=== PATIENT | male | born 1940 | race Caucasian/White ===

== ENCOUNTER 2017-02-14 10:57 | Emergency (ER) | payer OTHER ==
[~2017-02-14] VITALS: Ht 193 cm; Wt 103.4 kg
[2017-02-14 11:05] VITALS: BP_SYST 156
--- NOTE | 2017-02-14 11:08 | NUR ---
Pt placed to ER bed 07, report given to ARRON Montelongo.
[2017-02-14] MEDS ORDERED: ONDANSETRON HCL 4 MG/2 ML VIAL IVP ONE (11:15)
[2017-02-14] MEDS ORDERED: MORPHINE 4 MG/ML INJ. SYRINGE IVP ONE (11:15)
--- NOTE | 2017-02-14 11:30 | NUR ---
# 20 gauge angiocath placed to LEFT FOREARM. Use of aseptic technique. Opsite placed over site. Blood return noted. No evidence of infiltration noted. Patient tolerated well.
--- NOTE | 2017-02-14 11:33 | NUR ---
MEDCIATED WITH ZOFRAN 4 MG IVP FOR NAUSEA.
[2017-02-14 11:36] LABS: ANION GAP 7 (5-15); CALCIUM 8.6 mg/dL (8.4-11.0); CHLORIDE 104 mmol/L (98-107); CREATININE 0.88 mg/dL (0.55-1.30); GLUCOSE 162 mg/dL (70-99); POTASSIUM 3.6 mmol/L (3.5-5.1); SODIUM SERUM 137 mmol/L (136-145); UREA NITROGEN, BLOOD 13 mg/dL (8-21)
[2017-02-14 11:38] LABS: BASOPHILS % (AUTO) 0.2 % (0.0-2.0); EOSINOPHILS % (AUTO) 0.3 % (0.0-4.0); HEMATOCRIT 44.1 % (36-54); HEMOGLOBIN 14.4 g/dL (14.0-18.0); LYMPHOCYTES # (AUTO) 0.5 K/uL (1.0-5.5); MEAN CORPUSCULAR HEMOGLOBIN 29 pg (27-31); MEAN CORPUSCULAR HGB CONC 33 % (32-36); MEAN CORPUSCULAR VOLUME 88 fL (79.0-98.0); MONOCYTES # (AUTO) 0.3 K/uL (0.0-1.0); MONOCYTES % (AUTO) 5.2 % (1.7-9.3); NEUTROPHILS # (AUTO) 5.8 K/uL (1.8-7.7); NEUTROPHILS % (AUTO) 86.3 % (40.0-70.0); PLATELET COUNT (AUTO) 196 K/uL (130-430); PROTHROMBIN TIME 10.4 SECS (9.5-12.5); RED BLOOD CELL COUNT(AUTO) 4.98 MIL/uL (4.2-6.2); RED CELL DISTRIBUTION WIDTH 13.1 % (9.0-15.0); WHITE BLOOD COUNT (AUTO) 6.6 K/uL (4.8-10.8)
--- NOTE | 2017-02-14 11:40 | NUR ---
Dr. Story at bedside to assess pt.
[2017-02-14 11:51] LABS: ALANINE AMINOTRANSFERASE 19 U/L (12-78); ALBUMIN 3.8 g/dL (3.4-4.8); ASPARTATE AMINOTRANSFERASE 20 U/L (10-37); CREATINE KINASE, TOTAL 159 U/L (39-308); TOTAL BILIRUBIN 0.8 mg/dL (0.0-1.0); TOTAL PROTEIN, SERUM 6.9 g/dL (6.4-8.3)
--- NOTE | 2017-02-14 11:53 | NUR ---
RE-ASSESSED PT, SEEN TALKING TO HIS , " I FEEL BETTER NOW".
[2017-02-14 12:30] VITALS: BP_SYST 146
--- NOTE | 2017-02-14 12:30 | NUR ---
Patient given written and verbal discharge instructions and verbalizes understanding. ER MD discussed with patient the results and treatment provided. Patient in stable condition. ID arm band removed. IV catheter removed intact and dressing applied, no active bleeding. Rx of Zofran and Tylenol given. Patient educated on pain management and to follow up with PMD. Pain Scale 0/10. Opportunity for questions provided and answered.
== END 2017-02-14 12:30 | disposition home or self-care (01) ==
LOC: SED 10:57
DX: K52.9 Noninfective gastroenteritis and colitis, unspecified (principal); J44.9 Chronic obstructive pulmonary disease, unspecified; F17.200 Nicotine dependence, unspecified, uncomplicated
CPT/HCPCS: 36415; 80053; 82550; 84484; 85025; 85610; 85730; 93005; 96374; 99285; J2405

== ENCOUNTER 2018-11-15 11:27 | Emergency (ER) | payer OTHER ==
[~2018-11-15] VITALS: Ht 193 cm; Wt 108.9 kg
[2018-11-15 11:27] VITALS: BP_SYST 151
[2018-11-15 12:16] LABS: BASOPHILS % (AUTO) 0.9 % (0.0-2.0); EOSINOPHILS # (AUTO) 0.2 K/uL (0.0-0.4); EOSINOPHILS % (AUTO) 4.7 % (0.0-4.0); HEMATOCRIT 43.6 % (36-54); HEMOGLOBIN 14.5 g/dL (14.0-18.0); LYMPHOCYTES # (AUTO) 0.7 K/uL (1.0-5.5); LYMPHOCYTES % (AUTO) 14.1 % (20.5-51.5); MEAN CORPUSCULAR HEMOGLOBIN 29 pg (27-31); MEAN CORPUSCULAR HGB CONC 33 % (32-36); MEAN CORPUSCULAR VOLUME 88 fL (79.0-98.0); MONOCYTES # (AUTO) 0.5 K/uL (0.0-1.0); MONOCYTES % (AUTO) 10.7 % (1.7-9.3); NEUTROPHILS # (AUTO) 3.4 K/uL (1.8-7.7); NEUTROPHILS % (AUTO) 69.6 % (40.0-70.0); PLATELET COUNT (AUTO) 209 K/uL (130-430); RED BLOOD CELL COUNT(AUTO) 4.95 MIL/uL (4.2-6.2); RED CELL DISTRIBUTION WIDTH 13.9 % (9.0-15.0); WHITE BLOOD COUNT (AUTO) 4.9 K/uL (4.8-10.8)
[2018-11-15 12:28] LABS: ANION GAP 8 (5-15); CALCIUM 8.8 mg/dL (8.4-11.0); CHLORIDE 100 mmol/L (98-107); GLUCOSE 94 mg/dL (70-99); POTASSIUM 3.9 mmol/L (3.5-5.1); SODIUM SERUM 134 mmol/L (136-145); UREA NITROGEN, BLOOD 11 mg/dL (8-21)
[2018-11-15 12:33] LABS: INR 0.9 (0.80-1.20); PROTHROMBIN TIME 9.3 SECS (9.5-12.5)
[2018-11-15 12:58] LABS: ALANINE AMINOTRANSFERASE 22 U/L (12-78); ALBUMIN 3.7 g/dL (3.4-4.8); ASPARTATE AMINOTRANSFERASE 26 U/L (10-37); TOTAL BILIRUBIN 0.9 mg/dL (0.0-1.0)
[2018-11-15 13:01] LABS: CKMB RELATIVE INDEX 0.3 (0.0-2.9)
[2018-11-15] MEDS ORDERED: LEVALBUTEROL HCL 0.63 MG/3 ML VIAL.NEB INH ONE (13:15)
[2018-11-15] MEDS ORDERED: methylPREDNISolone SOD SUCC/PF 62.5 MG/ML VIAL IVP ONE (13:15)
[2018-11-15 13:45] VITALS: BP_SYST 141
== END 2018-11-15 13:45 | disposition home or self-care (01) ==
LOC: SED 11:27
DX: J44.9 Chronic obstructive pulmonary disease, unspecified (principal); R60.0 Localized edema; I10 Essential (primary) hypertension; Z87.891 Personal history of nicotine dependence
CPT/HCPCS: 36415; 71045; 80053; 82550; 82553; 83880; 84484; 85025; 85610; 85730; 93005; 94640; 96374; 99284; J2930; J7614

== ENCOUNTER 2018-11-29 19:48 | Emergency (ER) | payer OTHER ==
[~2018-11-29] VITALS: Ht 193 cm; Wt 108.4 kg
[2018-11-29 19:59] VITALS: BP_SYST 134
[2018-11-29] MEDS ORDERED: NACL 0.9% 1,000 ML IV ONE (20:30)
[2018-11-29] MEDS ORDERED: PIPERACILLIN/TAZO 3.375 GM in NS 50 ML IV ONE (20:30)
[2018-11-29] MEDS ORDERED: PIPERACILLIN/TAZOBACTAM 3.375 GM/VIAL (ZOSYN) IV ONE (20:50)
[2018-11-29 21:01] LABS: BASOPHILS % (AUTO) 0.6 % (0.0-2.0); EOSINOPHILS % (AUTO) 0.2 % (0.0-4.0); HEMATOCRIT 41.8 % (36-54); HEMOGLOBIN 14.5 g/dL (14.0-18.0); LYMPHOCYTES # (AUTO) 0.3 K/uL (1.0-5.5); LYMPHOCYTES % (AUTO) 5.6 % (20.5-51.5); MEAN CORPUSCULAR HEMOGLOBIN 30 pg (27-31); MEAN CORPUSCULAR HGB CONC 35 % (32-36); MEAN CORPUSCULAR VOLUME 86 fL (79.0-98.0); MONOCYTES # (AUTO) 0.5 K/uL (0.0-1.0); MONOCYTES % (AUTO) 8.3 % (1.7-9.3); NEUTROPHILS # (AUTO) 4.8 K/uL (1.8-7.7); NEUTROPHILS % (AUTO) 85.3 % (40.0-70.0); PLATELET COUNT (AUTO) 127 K/uL (130-430); RED BLOOD CELL COUNT(AUTO) 4.85 MIL/uL (4.2-6.2); WHITE BLOOD COUNT (AUTO) 5.6 K/uL (4.8-10.8)
[2018-11-29 21:19] LABS: ANION GAP 14 (5-15); CALCIUM 8.3 mg/dL (8.4-11.0); CHLORIDE 97 mmol/L (98-107); CREATININE 1.13 mg/dL (0.55-1.30); GLUCOSE 120 mg/dL (70-99); POTASSIUM 3.7 mmol/L (3.5-5.1); SODIUM SERUM 132 mmol/L (136-145); UREA NITROGEN, BLOOD 16 mg/dL (8-21)
[2018-11-29 21:22] LABS: INR 0.9 (0.80-1.20); PROTHROMBIN TIME 9.6 SECS (9.5-12.5)
[2018-11-29 21:24] LABS: ALANINE AMINOTRANSFERASE 21 U/L (12-78); ALBUMIN 3.2 g/dL (3.4-4.8); ASPARTATE AMINOTRANSFERASE 26 U/L (10-37); TOTAL BILIRUBIN 0.8 mg/dL (0.0-1.0)
[2018-11-29] MEDS ORDERED: IOHEXOL 350 mgI/mL, 150 ML INFUS..BTL IV ONE (22:32)
[2018-11-30 00:06] VITALS: BP_SYST 136
== END 2018-11-30 00:06 | disposition home or self-care (01) ==
LOC: SED 19:48
DX: J44.1 Chronic obstructive pulmonary disease with (acute) exacerbation (principal); J40 Bronchitis, not specified as acute or chronic; I10 Essential (primary) hypertension; Z87.891 Personal history of nicotine dependence
CPT/HCPCS: 36415; 71045; 71275; 80053; 83605; 83880; 84484; 85025; 85379; 85610; 87040; 93005; 96365; 99284; J2543; J7030; Q9967

== ENCOUNTER 2019-02-03 17:03 | Emergency (ER) | payer OTHER ==
[~2019-02-03] VITALS: Ht 190.5 cm; Wt 104.3 kg
[2019-02-03 17:24] VITALS: BP_SYST 157
[2019-02-03 18:35] VITALS: BP_SYST 157
== END 2019-02-03 18:30 | disposition home or self-care (01) ==
LOC: SED 17:03
DX: R60.0 Localized edema (principal); J44.9 Chronic obstructive pulmonary disease, unspecified; I10 Essential (primary) hypertension; Z87.891 Personal history of nicotine dependence
CPT/HCPCS: 93971; 99284

== ENCOUNTER 2022-02-02 10:00 | Outpatient (CLI) | payer OTHER ==
[~2022-02-02] VITALS: Ht 188 cm; Wt 76.2 kg
== END 2022-02-02 11:00 | disposition home or self-care (01) ==
LOC: SLB 10:00 → EDSTATUS 02-03 13:15
PROVIDERS: ATTEND Urology
DX: N40.1 Benign prostatic hyperplasia with lower urinary tract symptoms (principal); Z20.822 Contact with and (suspected) exposure to COVID-19
CPT/HCPCS: 87081; 36415; U0003

== ENCOUNTER 2022-02-17 11:48 | Day surgery (SDC) | payer OTHER ==
[~2022-02-17] VITALS: Ht 190.5 cm; Wt 85.7 kg
[2022-02-17] MEDS ORDERED: cefTRIAXone 1 GM IVPB PREMIX 50 ML IV ONE (13:15)
[2022-02-17] MEDS ORDERED: MIDAZOLAM HCL 5 MG/5 ML VIAL ONE (15:17)
[2022-02-17] MEDS ORDERED: HYDROcodone/ACETAMIN 5-325 MG TAB (NORCO/ VICODIN) PO PRN (15:45)
[2022-02-17] MEDS ORDERED: LR 1,000 ML IV.SOLN IV ONE (15:45)
[2022-02-17] MEDS ORDERED: ONDANSETRON HCL 4 MG/2 ML VIAL IVP PRN ×2 (15:45→16:15)
[2022-02-17] MEDS ORDERED: PROPOFOL 200MG/ 20ML VIAL (DIPRIVAN) IV ONE (15:45)
[2022-02-17] MEDS ORDERED: MORPHINE 4 MG INJ. 4 MG/ML VIAL IVP PRN (15:45)
[2022-02-17] MEDS ORDERED: NS IRRIG SOLN 1000 ML IR ONE (15:45)
[2022-02-17] MEDS ORDERED: NS IRRIG SOLN 5000 ML IR ONE (15:45)
[2022-02-17] MEDS ORDERED: BUPIVACAINE /PF 0.75% 10 ML VIAL INJ ONE (15:45)
[2022-02-17] MEDS ORDERED: METOCLOPRAMIDE HCL 10 MG/2 ML VIAL IVP PRN (16:15)
[2022-02-17] MEDS ORDERED: fentaNYL CITRATE/PF 100 MCG/2 ML AMP IVP PRN ×2 (16:15)
[2022-02-17] MEDS ORDERED: LIP10 PO (17:00)
[2022-02-17] MEDS ORDERED: FINA5TAB3 PO (17:00)
[2022-02-17] MEDS ORDERED: HYDR12.585 PO (17:00)
[2022-02-17] MEDS ORDERED: TAMS-11 PO (17:00)
[2022-02-17] MEDS ORDERED: CLOP75TA32 PO (17:00)
[2022-02-17] MEDS ORDERED: AMLO5TAB4 PO (17:00)
[2022-02-17] MEDS ORDERED: FURO-149 PO (17:00)
[2022-02-17] MEDS ORDERED: LISI10TA29 PO (17:00)
[2022-02-17] MEDS ORDERED: ALBUTEROL SULFATE 0.083% 2.5 MG/3 ML VIAL.NEB INH ONE ×2 (17:45→17:46)
[2022-02-17] MEDS ORDERED: MEPERIDINE HCL/PF 25 MG/ML DISP.SYRIN IVP ONE (18:15)
[2022-02-17] MEDS ORDERED: MEPERIDINE HCL/PF 25 MG/ML DISP.SYRIN ONE (18:17)
[2022-02-17 20:00] VITALS: BP_SYST 145
[2022-02-17 21:30] VITALS: BP_SYST 139
[2022-02-17] MEDS: NACL 0.9% 1,000 ML IV SCH (21:39)
[2022-02-17 21:40] VITALS: BP_SYST 139
[2022-02-18] MEDS: ALBUTEROL SULFATE 0.083% 2.5 MG/3 ML VIAL.NEB INH PRN ×2 (00:20→05:44)
[2022-02-18 00:23] VITALS: BP_SYST 139
[2022-02-18 00:25] VITALS: BP_SYST 147
[2022-02-18] MEDS: NACL 0.9% 1,000 ML IV SCH ×2 (04:45→08:15)
[2022-02-18 05:00] VITALS: BP_SYST 150
[2022-02-18 08:13] LABS: BASOPHILS % (AUTO) 0.9 % (0.0-2.0); EOSINOPHILS # (AUTO) 0.3 K/uL (0.0-0.4); EOSINOPHILS % (AUTO) 5.2 % (0.0-4.0); HEMATOCRIT 32.5 % (36-54); HEMOGLOBIN 10.8 g/dL (14.0-18.0); LYMPHOCYTES # (AUTO) 0.9 K/uL (1.0-5.5); LYMPHOCYTES % (AUTO) 17.1 % (20.5-51.5); MEAN CORPUSCULAR HEMOGLOBIN 28 pg (27-31); MEAN CORPUSCULAR HGB CONC 33 % (32-36); MEAN CORPUSCULAR VOLUME 83 fL (79.0-98.0); MONOCYTES # (AUTO) 0.4 K/uL (0.0-1.0); MONOCYTES % (AUTO) 7.3 % (1.7-9.3); NEUTROPHILS # (AUTO) 3.5 K/uL (1.8-7.7); NEUTROPHILS % (AUTO) 69.5 % (40.0-70.0); PLATELET COUNT (AUTO) 144 K/uL (130-430); RED BLOOD CELL COUNT(AUTO) 3.93 MIL/uL (4.2-6.2); RED CELL DISTRIBUTION WIDTH 15.8 % (9.0-15.0)
[2022-02-18 08:27] LABS: ANION GAP 7 (5-15); CALCIUM 7.6 mg/dL (8.4-11.0); CHLORIDE 110 mmol/L (98-107); GLUCOSE 79 mg/dL (70-99); POTASSIUM 3.7 mmol/L (3.5-5.1); UREA NITROGEN, BLOOD 9 mg/dL (8-21)
[2022-02-18 08:59] VITALS: BP_SYST 138
--- NOTE | 2022-02-18 10:30 | NUR ---
rn notes patient discharged at this time. with peralta. all belongings with him. all instructions given to patient with no other questions. instructions given to , patient and daughter Verónica.
== END 2022-02-18 10:30 | disposition home or self-care (01) ==
LOC: SDS 11:48 → SMU 17:11 → STU 18:00 → SDS 02-18 10:30
PROVIDERS: ATTEND Urology
DX: N40.1 Benign prostatic hyperplasia with lower urinary tract symptoms (principal); R33.9 Retention of urine, unspecified; I10 Essential (primary) hypertension; J44.9 Chronic obstructive pulmonary disease, unspecified; Z79.899 Other long term (current) drug therapy
CPT/HCPCS: 52601; 80048; 83735; 84100; 85025; 36415; 94640 ×2; 88305; 87426; J3490; J0696; J2250; J2704; J2175; J7613 ×2; J7120; C1769; J2270

== ENCOUNTER 2022-02-20 10:36 | Emergency (ER) | payer OTHER ==
[~2022-02-20] VITALS: Ht 193 cm; Wt 81.6 kg
[~2022-02-20 10:36] MED LIST: AMLO5TAB4 PO; FURO-149 PO; HYDR12.585 PO; LIP10 PO; LISI10TA29 PO
[2022-02-20 11:04] VITALS: BP_SYST 148
[2022-02-20 13:46] LABS: ANION GAP 6 (5-15); CALCIUM 8.2 mg/dL (8.4-11.0); CHLORIDE 107 mmol/L (98-107); CREATININE 0.86 mg/dL (0.55-1.30); GLUCOSE 115 mg/dL (70-99); POTASSIUM 3.7 mmol/L (3.5-5.1); SODIUM SERUM 143 mmol/L (136-145); UREA NITROGEN, BLOOD 11 mg/dL (8-21)
[2022-02-20 13:50] LABS: BASOPHILS # (AUTO) 0.1 K/uL (0.0-0.2); BASOPHILS % (AUTO) 0.9 % (0.0-2.0); EOSINOPHILS # (AUTO) 0.3 K/uL (0.0-0.4); EOSINOPHILS % (AUTO) 4.7 % (0.0-4.0); HEMOGLOBIN 12.7 g/dL (14.0-18.0); LYMPHOCYTES % (AUTO) 17.1 % (20.5-51.5); MEAN CORPUSCULAR HEMOGLOBIN 28 pg (27-31); MEAN CORPUSCULAR HGB CONC 33 % (32-36); MEAN CORPUSCULAR VOLUME 83 fL (79.0-98.0); MONOCYTES # (AUTO) 0.4 K/uL (0.0-1.0); MONOCYTES % (AUTO) 7.2 % (1.7-9.3); NEUTROPHILS # (AUTO) 4.3 K/uL (1.8-7.7); NEUTROPHILS % (AUTO) 70.1 % (40.0-70.0); PLATELET COUNT (AUTO) 163 K/uL (130-430); RED BLOOD CELL COUNT(AUTO) 4.58 MIL/uL (4.2-6.2); RED CELL DISTRIBUTION WIDTH 15.8 % (9.0-15.0); WHITE BLOOD COUNT (AUTO) 6.1 K/uL (4.8-10.8)
[2022-02-20 13:55] LABS: ALANINE AMINOTRANSFERASE 4 U/L (12-78); ALBUMIN 3.1 g/dL (3.4-4.8); ASPARTATE AMINOTRANSFERASE 16 U/L (10-37); TOTAL BILIRUBIN 0.7 mg/dL (0.0-1.0)
[2022-02-20 14:14] VITALS: BP_SYST 168
== END 2022-02-20 15:05 | disposition home or self-care (01) ==
LOC: SED 10:36
DX: I87.2 Venous insufficiency (chronic) (peripheral) (principal); R22.43 Localized swelling, mass and lump, lower limb, bilateral; L29.9 Pruritus, unspecified; J44.9 Chronic obstructive pulmonary disease, unspecified; I10 Essential (primary) hypertension; Z79.899 Other long term (current) drug therapy
CPT/HCPCS: 36415; 71045; 80053; 83880; 84484; 85025; 93005; 99285

== ENCOUNTER 2022-03-03 19:14 | Emergency (ER) | payer OTHER ==
[~2022-03-03] VITALS: Ht 188 cm; Wt 77.1 kg
[2022-03-03 19:29] VITALS: BP_SYST 139
--- NOTE | 2022-03-03 19:35 | NUR ---
HERE FOR RT LEG SWELLING AND UNHEALING WOUND POST SURGERY 8 MOS AGO. PT STATED THAT HIS LT FOOT SARTING TO SWELL WELL. PT DENIES TRAUMA. PT STATED THAT HE ALSO UNDERWENT SURGICAL PROCEDURE A MONTH AGO ON HIS LT LEG, PER PT HE DOESNT REMEMBER WHAT PROCEDURE HE UNDERWENT TO. NOTED REDNESS AND DRAINAGE TO RT FOOT, PT DENIES ANY TRAUMA, DENIES FEVER. PMH;HTN, POST SURGERY TO RT FOOT PRSENTED AAOX4, NOT IN ANY DISTRESS AT THIS TIME, AFEBRILE IN TRIAGE.
--- NOTE | 2022-03-03 19:55 | NUR ---
Dr. Abad at bedside with patient.
--- NOTE | 2022-03-03 20:02 | NUR ---
Patient wheeled to bed 2 for evaluation and treatment. Report given to Annmarie RN by car mover
[2022-03-03] MEDS ORDERED: SULFAMETHOXAZOLE/TRIMETHOPR DS 1 TABLET PO ONE (20:45)
[2022-03-03] MEDS ORDERED: SULF1TAB47 PO (20:54)
--- NOTE | 2022-03-03 21:45 | NUR ---
PT REFUSED VITALS.
[2022-03-03 21:57] VITALS: BP_SYST 139
--- NOTE | 2022-03-03 21:57 | NUR ---
Patient given written and verbal discharge instructions and verbalizes understanding. ER Dr. Abad discussed with patient the results and treatment provided. Patient in stable condition. ID arm band removed. Patient educated on pain management and to follow up with PMD. Pain Scale 0. Opportunity for questions provided and answered. Medication side effect fact sheet provided.
== END 2022-03-03 21:57 | disposition home or self-care (01) ==
LOC: SED 19:14
DX: L03.115 Cellulitis of right lower limb (principal); R22.41 Localized swelling, mass and lump, right lower limb; R21 Rash and other nonspecific skin eruption; I10 Essential (primary) hypertension; J44.9 Chronic obstructive pulmonary disease, unspecified; Z79.899 Other long term (current) drug therapy
CPT/HCPCS: 93971; 99284

== ENCOUNTER 2022-03-17 10:27 | Emergency (ER) | payer OTHER ==
[~2022-03-17] VITALS: Ht 190.5 cm; Wt 83.9 kg
[~2022-03-17 10:27] MED LIST changes: +SULF1TAB47 PO
--- NOTE | 2022-03-17 10:35 | NUR ---
Patient to ER bed 2 to gown for evaluation. Side rails up. Report given to SHYANN HELLER.
[2022-03-17 10:38] VITALS: BP_SYST 135
--- NOTE | 2022-03-17 10:40 | NUR ---
Assumed care of pt who was brought by from home after c/o SOB. Pt has a hx of COPD and chronic bronchitis. Normal O2 sat low 90s. Pt denies N/F/V/D. Pt is A&Ox4, calm and cooperative. Provided with O2 @2L NC bedside. Will continue to monitor and provide care as ordered.
--- NOTE | 2022-03-17 10:58 | NUR ---
ER Dr. Collazo at bedside examining patient.
[2022-03-17] MEDS ORDERED: methylPREDNISolone SOD SUCC/PF 62.5 MG/ML VIAL IVP ONE (11:15)
[2022-03-17] MEDS ORDERED: IPRATROPIUM/ALBUTEROL SULFATE 3 ML AMPUL.NEB (DUONEB) INH ONE (11:15)
[2022-03-17 11:19] LABS: BASOPHILS # (AUTO) 0.1 K/uL (0.0-0.2); BASOPHILS % (AUTO) 1.3 % (0.0-2.0); EOSINOPHILS # (AUTO) 0.5 K/uL (0.0-0.4); EOSINOPHILS % (AUTO) 7.2 % (0.0-4.0); HEMATOCRIT 38.7 % (36-54); LYMPHOCYTES # (AUTO) 1.1 K/uL (1.0-5.5); LYMPHOCYTES % (AUTO) 17.8 % (20.5-51.5); MEAN CORPUSCULAR HEMOGLOBIN 28 pg (27-31); MEAN CORPUSCULAR HGB CONC 34 % (32-36); MEAN CORPUSCULAR VOLUME 82 fL (79.0-98.0); MONOCYTES # (AUTO) 0.5 K/uL (0.0-1.0); MONOCYTES % (AUTO) 8.4 % (1.7-9.3); NEUTROPHILS # (AUTO) 4.2 K/uL (1.8-7.7); NEUTROPHILS % (AUTO) 65.3 % (40.0-70.0); PLATELET COUNT (AUTO) 200 K/uL (130-430); RED BLOOD CELL COUNT(AUTO) 4.71 MIL/uL (4.2-6.2); RED CELL DISTRIBUTION WIDTH 16.2 % (9.0-15.0); WHITE BLOOD COUNT (AUTO) 6.4 K/uL (4.8-10.8)
[2022-03-17 11:30] LABS: ANION GAP 5 (5-15); CALCIUM 8.8 mg/dL (8.4-11.0); CHLORIDE 103 mmol/L (98-107); CREATININE 1.04 mg/dL (0.55-1.30); GLUCOSE 91 mg/dL (70-99); POTASSIUM 3.6 mmol/L (3.5-5.1); SODIUM SERUM 138 mmol/L (136-145); UREA NITROGEN, BLOOD 14 mg/dL (8-21)
[2022-03-17 11:38] LABS: ALANINE AMINOTRANSFERASE 14 U/L (12-78); ALBUMIN 3.5 g/dL (3.4-4.8); ASPARTATE AMINOTRANSFERASE 23 U/L (10-37); TOTAL BILIRUBIN 0.7 mg/dL (0.0-1.0)
[2022-03-17] MEDS ORDERED: methylPREDNISolone SOD SUCC/PF 62.5 MG/ML VIAL ONE (12:00)
[2022-03-17] MEDS ORDERED: PRED50TA PO (12:25)
[2022-03-17 12:54] VITALS: BP_SYST 135
--- NOTE | 2022-03-17 12:58 | NUR ---
Patient given written and verbal discharge instructions and verbalizes understanding. ER Dr. Zay EDWARDS discussed with patient the results and treatment provided. Patient in stable condition. ID arm band removed. IV catheter removed intact and dressing applied, no active bleeding. Rx of Prednisone given. Patient educated on pain management and to follow up with PMD. Pain Scale 0/10. Opportunity for questions provided and answered. Medication side effect fact sheet provided.
== END 2022-03-17 12:54 | disposition home or self-care (01) ==
LOC: SED 10:27
DX: J44.1 Chronic obstructive pulmonary disease with (acute) exacerbation (principal); R06.02 Shortness of breath; I10 Essential (primary) hypertension; Z79.899 Other long term (current) drug therapy; Z20.822 Contact with and (suspected) exposure to COVID-19
CPT/HCPCS: 99285; 96374; 71045; 87426; 80053; 83880; 85025; 84484; 36415; 94640; 36600; 82803; J2930

== ENCOUNTER 2022-06-28 12:52 | Emergency (ER) | payer OTHER ==
[~2022-06-28] VITALS: Ht 182.9 cm; Wt 77.1 kg
[~2022-06-28 12:52] MED LIST changes: +PRED50TA PO
[2022-06-28 13:00] VITALS: BP_SYST 148
--- NOTE | 2022-06-28 13:55 | NUR ---
PT BIB AWAKE AND ALERT AOX4. NO SOB OR DISTRESS. PT C/O LEFT LEG NUMNESS X7 DAYS. PT DENIES PAIN WHILE IN BED BUT SAYS HE HURTS IF HE WALKS. PT WALKS WITH A CANE. PT STATED HE HAS NO MEDICAL HX.
[2022-06-28] MEDS ORDERED: KETOROLAC TROMETHAMINE 30 MG VIAL IM ONE (14:15)
[2022-06-28] MEDS ORDERED: HYDR-3917 PO (14:41)
[2022-06-28] MEDS ORDERED: IBUP-1971 PO (14:41)
[2022-06-28 14:54] VITALS: BP_SYST 125
--- NOTE | 2022-06-28 14:55 | NUR ---
Patient given written and verbal discharge instructions and verbalizes understanding. ER MD DR GARZA discussed with patient the results and treatment provided. Patient in stable condition. ID arm band removed. Rx of NORCO AND MOTRIN given. Patient educated on pain management and to follow up with PMD. Pain Scale 4/10. Opportunity for questions provided and answered. Medication side effect fact sheet provided.
== END 2022-06-28 14:54 | disposition home or self-care (01) ==
LOC: SED 12:52
DX: M79.605 Pain in left leg (principal); R20.2 Paresthesia of skin; F17.210 Nicotine dependence, cigarettes, uncomplicated; Z79.899 Other long term (current) drug therapy
CPT/HCPCS: 99283; 96372; J1885

== ENCOUNTER 2022-08-15 11:50 | Emergency (ER) | payer BC, OTHER ==
[~2022-08-15] VITALS: Ht 190.5 cm; Wt 93.0 kg
[~2022-08-15 11:50] MED LIST changes: +HYDR-3917 PO; +IBUP-1971 PO
[2022-08-15 11:57] VITALS: BP_SYST 170
[2022-08-15] MEDS ORDERED: IPRATROPIUM BROM 0.5 MG/2.5 ML VIAL.NEB (ATROVENT) INH ONE (12:00)
[2022-08-15] MEDS ORDERED: ALBUTEROL SULFATE 0.083% 2.5 MG/3 ML VIAL.NEB INH ONE (12:00)
[2022-08-15] MEDS ORDERED: ALBU2.5V7 INH (12:27)
[2022-08-15] MEDS ORDERED: PRED20TA PO (12:27)
[2022-08-15 14:30] VITALS: BP_SYST 168
== END 2022-08-15 14:29 | disposition home or self-care (01) ==
LOC: SED 11:50
DX: J44.1 Chronic obstructive pulmonary disease with (acute) exacerbation (principal); R06.02 Shortness of breath; R05.9 Cough, unspecified; I10 Essential (primary) hypertension; Z79.899 Other long term (current) drug therapy
CPT/HCPCS: 94640; 94760; 99283; J7613

== ENCOUNTER 2022-09-08 14:20 | Emergency (ER) | payer BC ==
[~2022-09-08] VITALS: Ht 188 cm; Wt 86.2 kg
[~2022-09-08 14:20] MED LIST changes: +ALBU2.5V7 INH; +PRED20TA PO
--- NOTE | 2022-09-08 14:30 | NUR ---
PT BIB SON AWAKE AND ALERT AOX4. PT C/O SOB. PT DENIES N/V/ PT HAS HX OF COPD. PT O2 SAT AT 96% ON RA.
[2022-09-08 14:33] VITALS: BP_SYST 149
--- NOTE | 2022-09-08 14:40 | NUR ---
MD DR NERI AT BEDSIDE
[2022-09-08] MEDS ORDERED: MAGNESIUM SULFATE 50 ML IV ONE (14:45)
[2022-09-08] MEDS ORDERED: IPRATROPIUM/ALBUTEROL SULFATE 3 ML AMPUL.NEB (DUONEB) INH ONE (14:45)
[2022-09-08] MEDS ORDERED: methylPREDNISolone SOD SUCC/PF 62.5 MG/ML VIAL IVP ONE (14:45)
[2022-09-08] MEDS ORDERED: methylPREDNISolone SOD SUCC/PF 62.5 MG/ML VIAL ONE (15:06)
[2022-09-08 15:32] LABS: ANION GAP 8 (5-15); CALCIUM 8.6 mg/dL (8.4-11.0); CHLORIDE 101 mmol/L (98-107); CREATININE 1.23 mg/dL (0.55-1.30); GLUCOSE 85 mg/dL (70-99); UREA NITROGEN, BLOOD 20 mg/dL (8-21)
[2022-09-08 15:37] LABS: ALANINE AMINOTRANSFERASE 17 U/L (12-78); ALBUMIN 3.3 g/dL (3.4-4.8); ASPARTATE AMINOTRANSFERASE 26 U/L (10-37); TOTAL BILIRUBIN 0.7 mg/dL (0.0-1.0)
[2022-09-08 15:42] LABS: HEMATOCRIT 38.8 % (36-54); MEAN CORPUSCULAR HEMOGLOBIN 27 pg (27-31); MEAN CORPUSCULAR HGB CONC 34 % (32-36); MEAN CORPUSCULAR VOLUME 81 fL (79.0-98.0); PLATELET COUNT (AUTO) 219 K/uL (130-430); RED BLOOD CELL COUNT(AUTO) 4.77 MIL/uL (4.2-6.2); RED CELL DISTRIBUTION WIDTH 15.7 % (9.0-15.0); WHITE BLOOD COUNT (AUTO) 3.4 K/uL (4.8-10.8)
[2022-09-08 16:36] LABS: BAND % (MANUAL) 6 % (0-6); BASOPHILS % (MANUAL) 0 % (0-2); EOSINOPHILS % (MANUAL) 2 % (0-7); LYMPHOCYTES % (MANUAL) 17 % (20-46); MONOCYTES % (MANUAL) 14 % (0-11)
[2022-09-08] MEDS ORDERED: ALBU2.5V7 INH (16:54)
[2022-09-08] MEDS ORDERED: MED4 PO (16:54)
[2022-09-08] MEDS ORDERED: ALBMDI INH (16:54)
--- NOTE | 2022-09-08 17:00 | NUR ---
Patient given written and verbal discharge instructions and verbalizes understanding. ER MD DR NERI discussed with patient the results and treatment provided. Patient in stable condition. ID arm band removed. IV catheter removed intact and dressing applied, no active bleeding. Rx of ALBUTEROL, VENTOLIN, MEDROL given. Patient educated on pain management and to follow up with PMD. Pain Scale 0/10. Opportunity for questions provided and answered. Medication side effect fact sheet provided.
[2022-09-08 17:33] VITALS: BP_SYST 135
== END 2022-09-08 17:00 | disposition home or self-care (01) ==
LOC: SED 14:20
DX: J44.1 Chronic obstructive pulmonary disease with (acute) exacerbation (principal); E78.5 Hyperlipidemia, unspecified; I10 Essential (primary) hypertension; R06.00 Dyspnea, unspecified; Z79.899 Other long term (current) drug therapy
CPT/HCPCS: 99284; 96365; 71045; 96366; 96375; 85027; 80053; 85007; 87040; 36415; 94640; 36600; 82803; 83605; J3475; J2930

== ENCOUNTER 2022-11-03 12:49 | Emergency (ER) | payer BC ==
[~2022-11-03] VITALS: Ht 193 cm; Wt 90.7 kg
[~2022-11-03 12:49] MED LIST changes: +ALBMDI INH; +MED4 PO
--- NOTE | 2022-11-03 13:20 | NUR ---
Patient to ER bed 5 to gown for evaluation. Side rails up. Report given to MARA HELLER.
--- NOTE | 2022-11-03 13:25 | NUR ---
PT BIB SELF AWAKE AND ALERT AOX4. PT C/O SOB SINCE 0200 TODAY AND ABDOMINAL PAIN /10 PAIN. PT HAS HX OF COPD, ASTHMA. HTN.
--- NOTE | 2022-11-03 13:30 | NUR ---
MD DR DODD AT BEDSIDE
[2022-11-03 13:31] VITALS: BP_SYST 139
[2022-11-03] MEDS ORDERED: predniSONE 20 MG TABLET PO ONE (13:45)
[2022-11-03] MEDS ORDERED: IPRATROPIUM/ALBUTEROL SULFATE 3 ML AMPUL.NEB (DUONEB) INH ONE (13:45)
[2022-11-03 14:06] LABS: ANION GAP 8 (5-15); CALCIUM 8.2 mg/dL (8.4-11.0); CHLORIDE 103 mmol/L (98-107); GLUCOSE 100 mg/dL (70-99); UREA NITROGEN, BLOOD 11 mg/dL (8-21)
[2022-11-03 14:09] LABS: BASOPHILS # (AUTO) 0.1 K/uL (0.0-0.2); BASOPHILS % (AUTO) 1.7 % (0.0-2.0); EOSINOPHILS # (AUTO) 0.6 K/uL (0.0-0.4); EOSINOPHILS % (AUTO) 10.4 % (0.0-4.0); HEMATOCRIT 38.4 % (36-54); HEMOGLOBIN 12.6 g/dL (14.0-18.0); MEAN CORPUSCULAR HEMOGLOBIN 27 pg (27-31); MEAN CORPUSCULAR HGB CONC 33 % (32-36); MEAN CORPUSCULAR VOLUME 82 fL (79.0-98.0); MONOCYTES # (AUTO) 0.6 K/uL (0.0-1.0); MONOCYTES % (AUTO) 11.4 % (1.7-9.3); NEUTROPHILS # (AUTO) 3.1 K/uL (1.8-7.7); NEUTROPHILS % (AUTO) 57.5 % (40.0-70.0); PLATELET COUNT (AUTO) 202 K/uL (130-430); RED BLOOD CELL COUNT(AUTO) 4.71 MIL/uL (4.2-6.2); RED CELL DISTRIBUTION WIDTH 15.5 % (9.0-15.0); WHITE BLOOD COUNT (AUTO) 5.4 K/uL (4.8-10.8)
[2022-11-03 14:13] LABS: ALANINE AMINOTRANSFERASE 12 U/L (12-78); ALBUMIN 3.6 g/dL (3.4-4.8); ASPARTATE AMINOTRANSFERASE 19 U/L (10-37); TOTAL BILIRUBIN 0.8 mg/dL (0.0-1.0)
[2022-11-03] MEDS ORDERED: MAGNESIUM SULFATE 50 ML IV ONE (17:45)
[2022-11-03] MEDS ORDERED: methylPREDNISolone SOD SUCC/PF 62.5 MG/ML VIAL IVP ONE (17:45)
--- NOTE | 2022-11-03 19:00 | NUR ---
Patient given written and verbal discharge instructions and verbalizes understanding. ER MD DR NERI discussed with patient the results and treatment provided. Patient in stable condition. ID arm band removed. IV catheter removed intact and dressing applied, no active bleeding. Patient educated on pain management and to follow up with PMD. Pain Scale 0/10. Opportunity for questions provided and answered. Medication side effect fact sheet provided.
[2022-11-03] MEDS ORDERED: AZIT500T3 PO (19:40)
[2022-11-03] MEDS ORDERED: ALBU2.5V7 INH (19:40)
[2022-11-03] MEDS ORDERED: PRED20TA PO (19:40)
[2022-11-03] MEDS ORDERED: ALBMDI INH (19:40)
[2022-11-04 12:50] VITALS: BP_SYST 135
== END 2022-11-03 18:00 | disposition home or self-care (01) ==
LOC: SED 12:49
DX: J44.1 Chronic obstructive pulmonary disease with (acute) exacerbation (principal); R06.02 Shortness of breath; R07.9 Chest pain, unspecified; E78.5 Hyperlipidemia, unspecified; I11.0 Hypertensive heart disease with heart failure; I50.9 Heart failure, unspecified; Z79.899 Other long term (current) drug therapy
CPT/HCPCS: 99285; 96365; 71045; 96375; 80053; 83880; 85025; 84484; 36415; 93005; 94640; 94760; J7512; J3475; J2930

== ENCOUNTER 2022-11-05 14:52 | Inpatient (IN) | payer BC ==
[~2022-11-05] VITALS: Ht 193 cm; Wt 103.0 kg
[~2022-11-05 14:52] MED LIST changes: +AZIT500T3 PO
[2022-11-05 14:57] VITALS: BP_SYST 140
[2022-11-05] MEDS ORDERED: IPRATROPIUM BROM 0.5 MG/2.5 ML VIAL.NEB (ATROVENT) INH ONE (15:00)
[2022-11-05] MEDS ORDERED: ALBUTEROL SULFATE 0.083% 2.5 MG/3 ML VIAL.NEB INH ONE (15:00)
[2022-11-05] MEDS ORDERED: methylPREDNISolone SOD SUCC/PF 62.5 MG/ML VIAL IVP ONE (15:00)
--- NOTE | 2022-11-05 15:25 | NUR ---
PT RECEIVED, CARE ASSUMED. PT A/OX4. PT PRESENTS SELF TO ER WITH C/O SOB. CONNECTED TO TELE MONITOR, 02 @ 91%, PLACED PT ON 2LPM 02 VIA NAKUL. AT BEDSIDE. WILL CONTINUE TO MONITOR
[2022-11-05 16:09] LABS: BASOPHILS % (AUTO) 0.3 % (0.0-2.0); EOSINOPHILS % (AUTO) 0.1 % (0.0-4.0); HEMATOCRIT 37.9 % (36-54); HEMOGLOBIN 12.4 g/dL (14.0-18.0); LYMPHOCYTES # (AUTO) 0.6 K/uL (1.0-5.5); LYMPHOCYTES % (AUTO) 6.6 % (20.5-51.5); MEAN CORPUSCULAR HEMOGLOBIN 27 pg (27-31); MEAN CORPUSCULAR HGB CONC 33 % (32-36); MEAN CORPUSCULAR VOLUME 82 fL (79.0-98.0); MONOCYTES # (AUTO) 0.3 K/uL (0.0-1.0); MONOCYTES % (AUTO) 4.2 % (1.7-9.3); NEUTROPHILS # (AUTO) 7.4 K/uL (1.8-7.7); NEUTROPHILS % (AUTO) 88.8 % (40.0-70.0); PLATELET COUNT (AUTO) 229 K/uL (130-430); RED BLOOD CELL COUNT(AUTO) 4.64 MIL/uL (4.2-6.2); RED CELL DISTRIBUTION WIDTH 15.7 % (9.0-15.0); WHITE BLOOD COUNT (AUTO) 8.4 K/uL (4.8-10.8)
[2022-11-05 16:23] LABS: ANION GAP 11 (5-15); CALCIUM 8.2 mg/dL (8.4-11.0); CHLORIDE 103 mmol/L (98-107); CREATININE 1.09 mg/dL (0.55-1.30); GLUCOSE 135 mg/dL (70-99); UREA NITROGEN, BLOOD 16 mg/dL (8-21)
[2022-11-05 16:33] LABS: ALANINE AMINOTRANSFERASE 16 U/L (12-78); ALBUMIN 3.6 g/dL (3.4-4.8); ASPARTATE AMINOTRANSFERASE 22 U/L (10-37); TOTAL BILIRUBIN 1.2 mg/dL (0.0-1.0)
--- NOTE | 2022-11-05 16:53 | NUR ---
Admit bed requested Patient will be admitted to care of . Admitted to TELEMETRY unit. Diagnosis COPD EXACERBATION Inpatient (Yes or No) Y Observation (Yes or No) N Orientation concerns or request close to nursing station (Yes or No) N Covid Status NEG On vent or bipap N Isolation requirements N Needs a sitter N From Home (Yes or if No enter name of facility) Y Requires Dialysis (Yes or No) N Med Rec Completed (Yes of No) Y
[2022-11-05 18:55] VITALS: BP_SYST 180
--- NOTE | 2022-11-05 18:55 | NUR ---
ADMISSION NOTE Received patient from ER via gurney. Patient admitted with diagnosis of COPD. Patient is awake, alert, oriented X 4. Patient oriented to hospital room, call light, toileting, pain management and safety-teach back done. Call light within reach. MD Friedman paged regarding elevated BP. Awaiting call back.
--- NOTE | 2022-11-05 19:02 | NUR ---
Patient will be admitted to [facility]. Admitted to unit. Will go to room . Belongings list completed. Complete and up to date summary report printed. SBAR report to be given at bedside with opportunity for questions.
--- NOTE | 2022-11-05 20:15 | NUR ---
COMMUNICATION W/ DR. ARNAV JOSÉ CALLED BACK AT THIS TIME, IT WAS COMMUNICATED TO HIM THAT AM NURSE REPORTED ELEVATED BLOOD PRESSURE. NEW ORDERS RECEIVED. ALL ORDERS READ BACK AND VERIFIED.
[2022-11-05 20:40] VITALS: BP_SYST 142
[2022-11-05] MEDS ORDERED: hydrALAZINE HCL 20 MG/ML VIAL IVP PRN (21:00)
[2022-11-05] MEDS ORDERED: ACETAMINOPHEN 500 MG TABLET PO PRN ×2 (21:00→21:15)
[2022-11-05] MEDS: ALBUTEROL SULFATE 0.083% 2.5 MG/3 ML VIAL.NEB INH PRN (21:34)
[2022-11-05] MEDS: IPRATROPIUM BROM 0.5 MG/2.5 ML VIAL.NEB (ATROVENT) INH PRN (21:34)
[2022-11-05 23:01] VITALS: BP_SYST 180
--- NOTE | 2022-11-06 06:40 | NUR ---
CLOSING NOTE PATIENT SLEPT ON AND OFF THROUGHOUT THE NIGHT, HE DID NOT HAVE ANY ACUTE RESPIRATORY DISTRESS DURING THE NIGHT. HE REMAINS ON 3L NASAL CANNULA AT THIS TIME, WITH OXYGEN SATURATION AT AROUND 94%. HE WAS ABLE TO AMBULATE TO THE RESTROOM SEVERAL TIMES WITHOUT ASSISTANCE NEEDED, AND HE DID NOT GET SHORT OF BREATH WHILE GOING TO THE RESTROOM. AT THIS TIME, HE IS RESTING IN BED, STABLE, NO SIGNS OF RESPIRATORY DISTRESS. CALL LIGHT IS WITHIN REACH, BED IS LOCKED, ALARMED, AND AT THE LOWEST LEVEL. FALL AND SAFETY PRECAUTIONS HAVE BEEN IN PLACE THROUGHOUT THE SHIFT. WILL CONTINUE TO MONITOR UNTIL REPORT IS GIVEN AT BEDSIDE TO AM NURSE.
--- NOTE | 2022-11-06 06:44 | NUR ---
CLOSING NOTE PATIENT SLEPT WELL THROUGHOUT THE NIGHT, SHE DID NOT SOB, OR PAIN DURING THE NIGHT. SHE WAS ABLE TO GET TO HER COMMODE AT BEDSIDE TO URINATE WITH SOME ASSISTANCE BY RN. SEVERAL AT THIS TIME, SHE IS RESTING IN BED, STABLE, NO SIGNS OF RESPIRATORY DISTRESS. CALL LIGHT IS WITHIN REACH, BED IS LOCKED, ALARMED, AND AT THE LOWEST LEVEL. FALL AND SAFETY PRECAUTIONS HAVE BEEN IN PLACE THROUGHOUT THE SHIFT. WILL CONTINUE TO MONITOR UNTIL REPORT IS GIVEN AT BEDSIDE TO AM NURSE. PATIENT HAS BEEN NPO SINCE MIDNIGHT FOR AM PROCEDURE. Addendum: 11/06/22 at 0646 by Jud Khan RN RN NOTE INTENDED FOR DIFFERENT PATIENT
[2022-11-06 08:00] VITALS: BP_SYST 154
--- NOTE | 2022-11-06 08:00 | NUR ---
INITIAL NOTE: Received Patient sitting in bed, alert & oriented x 4. Patient is pleasant & good historian. States he is tired from not getting much sleep over night. Denies pain at this time. No signs of acute distress noted at this time. Breathing is even & non-labored. L:jesse sounds clear, all lobes. 20 gauge SL to left wrist. Patient is on O2 at 3 LPM. Vitals WNL. No edema noted. Bed in low, locked position. Call light & personal items within reach.
[2022-11-06] MEDS: ALBUTEROL SULFATE 0.083% 2.5 MG/3 ML VIAL.NEB INH PRN (08:58)
[2022-11-06] MEDS: IPRATROPIUM BROM 0.5 MG/2.5 ML VIAL.NEB (ATROVENT) INH PRN (08:58)
[2022-11-06] MEDS ORDERED: NALOXONE HCL 0.4 MG/ML AMP (NARCAN) IVP PRN (09:15)
[2022-11-06] MEDS ORDERED: ONDANSETRON HCL 4 MG/2 ML VIAL IVP PRN (09:15)
[2022-11-06] MEDS ORDERED: HYDROcodone/ACETAMIN 5-325 MG TAB (NORCO/ VICODIN) PO PRN (09:15)
[2022-11-06] MEDS ORDERED: AZITHROMYCIN 250 MG TABLET PO SCH (09:15)
[2022-11-06] MEDS ORDERED: IBUPROFEN 800 MG TABLET PO PRN (09:15)
--- NOTE | 2022-11-06 09:27 | NUR ---
CONSULTATION PAGED/CALLED Reason for Consultation: COPD Person Who was Notified: RUDI Consulting Physician: LATA AHUMADA Stamping Press Operator Specialty: Ordering Physician: OMI LI
[2022-11-06] MEDS ORDERED: HYDROCHLOROTHIAZIDE 12.5 MG CAPSULE (HCTZ) PO ONE (10:00)
[2022-11-06] MEDS ORDERED: FUROSEMIDE 40 MG TABLET PO ONE (10:00)
[2022-11-06] MEDS ORDERED: LISINOPRIL 10 MG TABLET (PRINIVIL) PO ONE (10:00)
[2022-11-06] MEDS ORDERED: amLODIPine BESYLATE 5 MG TABLET PO ONE (10:00)
[2022-11-06] MEDS ORDERED: METHYLPREDNISOLONE SOD SUCC 40 MG/ML VIAL IVP ONE ×2 (10:00→13:00)
--- NOTE | 2022-11-06 10:00 | NUR ---
Patient resting quietly, eyes closed. Appears to be sleeping. No signs of distress noted. Bed in low, locked position. Call light & personal items within reach.
[2022-11-06 11:23] VITALS: BP_SYST 127
--- NOTE | 2022-11-06 12:00 | NUR ---
Patient sitting in bed in position of comfort. Family at bedside. No signs of distress noted. Denies pain. Bed in low, locked position. Call light & personal items within reach.
--- NOTE | 2022-11-06 14:00 | NUR ---
Patient in bed in position of comfort. Denies pain at this time. No s/s of acute distress noted. Bed in low, locked position. Call light & personal items within reach.
[2022-11-06] MEDS: AZITHROMYCIN 250 MG TABLET PO SCH (14:26)
[2022-11-06] MEDS: NORMAL SALINE 5 ML DISP.SYRIN IVF SCH ×2 (14:28→22:19)
[2022-11-06] MEDS: LORazepam 2 MG/ML VIAL IVP PRN (14:32)
[2022-11-06 15:24] VITALS: BP_SYST 141
--- NOTE | 2022-11-06 16:00 | NUR ---
Patient lying in bed, eyes closed. Appears to be sleeping. No signs of distress noted. No signs of pain seen. Bed in low, locked position. Alarm activated for safety. Call light & personal items within reach.
--- NOTE | 2022-11-06 18:29 | NUR ---
Patient was taken for chest CT without contrast & has returned. Patient denies pain at this time. No signs of distress noted. IV site to left wrist was noted to have slight bleeding at site. Flushes well & patient denies pain. Patient requested not to have new IV started at this time. Nurse explained that a new IV will need to be started at if it appears that the IV site is infiltrated, has pain or does not flush. Patient voiced understanding.
--- NOTE | 2022-11-06 19:20 | NUR ---
OPENING NOTE PT IS SEMI FOWLERS WITH EYES CLOSED. NO APPARENT DISTRESS NOTED AT THIS TIME. BED IN LOWEST POSITION WITH FALL AND SAFETY PRECAUTIONS IN PLACE. CALL LIGHT WITHIN REACH, PT VERBALIZED HOW TO USE IT. ALL NEEDS MET AT THIS TIME.
[2022-11-06 20:00] VITALS: BP_SYST 120
[2022-11-06] MEDS: BUDESONIDE 0.5 MG/2 ML AMPUL.NEB INH SCH (20:00)
[2022-11-06] MEDS: ATORVASTATIN 10 MG TABLET PO SCH (20:51)
[2022-11-06] MEDS ORDERED: METHYLPREDNISOLONE SOD SUCC 40 MG/ML VIAL IVP SCH (21:00)
[2022-11-06] MEDS: METHYLPREDNISOLONE SOD SUCC 40 MG/ML VIAL IVP SCH (22:55)
[2022-11-07] VITALS: BP_SYST 120
[2022-11-07] MEDS: IPRATROPIUM/ALBUTEROL SULFATE 3 ML AMPUL.NEB (DUONEB) INH PRN ×3 (03:24→18:12)
--- NOTE | 2022-11-07 04:10 | NUR ---
ROUNDS PT SITTING UP IN BED WITH EYES OPEN COMPLAINING OF DIFFICULTY BREATHING. RT CALLED FOR BREATHING TX. NO ASPPARENT DISTRESS NOTED AT THIS TIME. CALL LIGHT WITHIN REACH
[2022-11-07] MEDS: METHYLPREDNISOLONE SOD SUCC 40 MG/ML VIAL IVP SCH ×3 (05:37→22:50)
[2022-11-07] MEDS: NORMAL SALINE 5 ML DISP.SYRIN IVF SCH ×3 (06:27→21:10)
--- NOTE | 2022-11-07 06:33 | NUR ---
CLOSING NOTE PT IS SEMI FOWLERS IN BED WITH EYES CLOSED. NO APPARENT DISTRESS NOTED AT THIS TIME. BED IN LOWEST POSITION WITH FALL AND SAFETY PRECAUTIONS IN PLACE. CALL LIGHT WITHIN REACH.
[2022-11-07 06:52] LABS: HEMATOCRIT 39.8 % (36-54); HEMOGLOBIN 13.1 g/dL (14.0-18.0); LYMPHOCYTES # (AUTO) 0.5 K/uL (1.0-5.5); LYMPHOCYTES % (AUTO) 5.9 % (20.5-51.5); MEAN CORPUSCULAR HEMOGLOBIN 27 pg (27-31); MEAN CORPUSCULAR HGB CONC 33 % (32-36); MEAN CORPUSCULAR VOLUME 81 fL (79.0-98.0); MONOCYTES # (AUTO) 0.3 K/uL (0.0-1.0); MONOCYTES % (AUTO) 3.6 % (1.7-9.3); NEUTROPHILS # (AUTO) 7.1 K/uL (1.8-7.7); NEUTROPHILS % (AUTO) 90.5 % (40.0-70.0); PLATELET COUNT (AUTO) 214 K/uL (130-430); RED CELL DISTRIBUTION WIDTH 15.5 % (9.0-15.0); WHITE BLOOD COUNT (AUTO) 7.9 K/uL (4.8-10.8)
[2022-11-07 07:18] LABS: ANION GAP 8 (5-15); CALCIUM 8.3 mg/dL (8.4-11.0); CHLORIDE 103 mmol/L (98-107); CREATININE 0.98 mg/dL (0.55-1.30); GLUCOSE 141 mg/dL (70-99); UREA NITROGEN, BLOOD 27 mg/dL (8-21)
[2022-11-07] MEDS: BUDESONIDE 0.5 MG/2 ML AMPUL.NEB INH SCH ×2 (07:26→19:29)
[2022-11-07 08:00] VITALS: BP_SYST 109
--- NOTE | 2022-11-07 08:00 | NUR ---
INITIAL NOTE: Received Patient sitting in bed, awake, alert, oriented x 4. Breathing even, non-labored. On O2 @ 3 LPM via NC. No c/o SOB. Denies pain at this time. No fever noted. No signs of acute distress noted. 20 gauge saline lock to left wrist. flushes well. No c/o pain, no signs of infiltration noted. No edema noted to extremities. Bed low, locked. Patient up to restroom with BRP. Uses walking stick/cane from home for assist. Patient is noted to this Nurse to be stable on feet. Reminded to rise slowly & monitor for dizziness, SOB & call for help if symptoms are felt. Call light & personal items within reach.
[2022-11-07] MEDS: HYDROCHLOROTHIAZIDE 12.5 MG CAPSULE (HCTZ) PO SCH (09:00)
[2022-11-07] MEDS: amLODIPine BESYLATE 5 MG TABLET PO SCH (09:00)
[2022-11-07] MEDS: FUROSEMIDE 40 MG TABLET PO SCH (09:00)
[2022-11-07] MEDS: LISINOPRIL 10 MG TABLET (PRINIVIL) PO SCH (09:00)
--- NOTE | 2022-11-07 10:31 | NUR ---
FAMILY CONTACT INFO: Spoke with Patient's son and oldest daughter. Received permission from Patient to give information to both. Oldest daughter is in [place] & wishes to be kept informed of Patient status. Patient daughter is Kimberlee Villegas [phone]. Patient son: Sidney Bartholomew [phone]. Son is local, in [place]
[2022-11-07] MEDS: AZITHROMYCIN 250 MG TABLET PO SCH (11:00)
[2022-11-07 11:21] VITALS: BP_SYST 138
--- NOTE | 2022-11-07 12:00 | NUR ---
Patient resting comfortably in bed. No signs of acute distress noted. No c/o pain. No c/o SOB. All needs met. Bed in low, locked position. Call light within reach.
--- NOTE | 2022-11-07 14:00 | NUR ---
Patient resting in position of comfort in bed, eyes closed. Appears to be sleeping. No signs of acute distress noted. Bed low, wheels locked. Bed alarm active for safety. Call light & personal items within reach.
[2022-11-07 15:11] VITALS: BP_SYST 135
--- NOTE | 2022-11-07 16:00 | NUR ---
Patient is lying in bed, watching TV. No c/o SOB. Denies pain. All due meds have been given. Tolerated well. Bed in low, locked position. Call light within reach.
[2022-11-07] MEDS: LORazepam 2 MG/ML VIAL IVP PRN (16:12)
--- NOTE | 2022-11-07 19:15 | NUR ---
OPENING NOTE PT IS SEMI FOWLERS WITH EYES NO APPARENT DISTRESS NOTED AT THIS TIME. BED IN LOWEST POSITION WITH FALL AND SAFETY PRECAUTIONS IN PLACE. CALL LIGHT WITHIN REACH, PT VERBALIZED HOW TO USE IT. ALL NEEDS MET AT THIS TIME.
[2022-11-07 20:00] VITALS: BP_SYST 112
[2022-11-07] MEDS: ATORVASTATIN 10 MG TABLET PO SCH (21:09)
[2022-11-08] VITALS (7 sets, daily range): BP systolic 104–138
--- NOTE | 2022-11-08 02:00 | NUR ---
ROUNDS PT IS SEMIFOWLERS IN BED WITH EYES CLOSED. NO APPARENT DISTRESS NOTED AT THIS TIME. BED IN LOWEST POSITION WITH FALL AND SAFETY PRECAUTIONS IN PLACE. CALL LIGHT WITHIN REACH.
[2022-11-08 06:41] LABS: BASOPHILS % (AUTO) 0.1 % (0.0-2.0); HEMATOCRIT 41.1 % (36-54); HEMOGLOBIN 13.6 g/dL (14.0-18.0); LYMPHOCYTES # (AUTO) 0.4 K/uL (1.0-5.5); MEAN CORPUSCULAR HEMOGLOBIN 27 pg (27-31); MEAN CORPUSCULAR HGB CONC 33 % (32-36); MEAN CORPUSCULAR VOLUME 81 fL (79.0-98.0); MONOCYTES # (AUTO) 0.3 K/uL (0.0-1.0); MONOCYTES % (AUTO) 4.2 % (1.7-9.3); NEUTROPHILS # (AUTO) 7.5 K/uL (1.8-7.7); NEUTROPHILS % (AUTO) 90.7 % (40.0-70.0); PLATELET COUNT (AUTO) 227 K/uL (130-430); RED BLOOD CELL COUNT(AUTO) 5.06 MIL/uL (4.2-6.2); RED CELL DISTRIBUTION WIDTH 15.2 % (9.0-15.0); WHITE BLOOD COUNT (AUTO) 8.3 K/uL (4.8-10.8)
[2022-11-08] MEDS: METHYLPREDNISOLONE SOD SUCC 40 MG/ML VIAL IVP SCH ×3 (06:48→21:31)
[2022-11-08] MEDS: NORMAL SALINE 5 ML DISP.SYRIN IVF SCH ×3 (06:49→21:31)
[2022-11-08 07:07] LABS: ANION GAP 7 (5-15); CALCIUM 8.3 mg/dL (8.4-11.0); CHLORIDE 103 mmol/L (98-107); CREATININE 1.04 mg/dL (0.55-1.30); GLUCOSE 137 mg/dL (70-99); UREA NITROGEN, BLOOD 31 mg/dL (8-21)
[2022-11-08] MEDS: BUDESONIDE 0.5 MG/2 ML AMPUL.NEB INH SCH ×2 (07:23→21:17)
--- NOTE | 2022-11-08 08:05 | NUR ---
OPENING NOTES: PT IN BED WITH EYES OPENED. A/O X4. NO S/S OF DISTRESS OR PAIN REPORTED. BREATHING IS EVEN AND UNLABORED ON RA 95%. ALL NEEDS MET AT THIS TIME, SAFETY CHECKS MADE AND CALL LIGHT WITHIN REACH.
[2022-11-08] MEDS: FUROSEMIDE 40 MG TABLET PO SCH (08:32)
[2022-11-08] MEDS: LISINOPRIL 10 MG TABLET (PRINIVIL) PO SCH (08:33)
[2022-11-08] MEDS: HYDROCHLOROTHIAZIDE 12.5 MG CAPSULE (HCTZ) PO SCH (08:33)
[2022-11-08] MEDS: amLODIPine BESYLATE 5 MG TABLET PO SCH (08:34)
--- NOTE | 2022-11-08 20:00 | NUR ---
Received Patient sitting in bed, awake, alert, oriented x 4. Breathing even, non-labored. On O2 @ 3 LPM via NC. No c/o SOB. Denies pain at this time. No fever noted. No signs of acute distress noted. 20 gauge saline lock to left wrist. flushes well. No c/o pain, no signs of infiltration noted. No edema noted to extremities. Bed low, locked. Patient up to restroom with BRP. Uses walking stick/cane from home for assist. Has BRP and patient is noted to this Nurse to be stable on feet. Reminded to rise slowly & monitor for dizziness, SOB & call for help if symptoms are felt. Call light & personal items within reach.
[2022-11-08] MEDS: ATORVASTATIN 10 MG TABLET PO SCH (21:31)
[2022-11-09] VITALS: BP_SYST 138
[2022-11-09] MEDS: LORazepam 2 MG/ML VIAL IVP PRN (00:13)
[2022-11-09] MEDS: NORMAL SALINE 5 ML DISP.SYRIN IVF SCH ×3 (06:20→22:44)
[2022-11-09] MEDS: METHYLPREDNISOLONE SOD SUCC 40 MG/ML VIAL IVP SCH ×3 (06:20→22:44)
[2022-11-09 06:45] LABS: BASOPHILS % (AUTO) 0.1 % (0.0-2.0); HEMATOCRIT 42.3 % (36-54); HEMOGLOBIN 13.8 g/dL (14.0-18.0); LYMPHOCYTES # (AUTO) 0.6 K/uL (1.0-5.5); LYMPHOCYTES % (AUTO) 6.1 % (20.5-51.5); MEAN CORPUSCULAR HEMOGLOBIN 27 pg (27-31); MEAN CORPUSCULAR HGB CONC 33 % (32-36); MEAN CORPUSCULAR VOLUME 81 fL (79.0-98.0); MONOCYTES # (AUTO) 0.5 K/uL (0.0-1.0); MONOCYTES % (AUTO) 5.3 % (1.7-9.3); NEUTROPHILS # (AUTO) 8.6 K/uL (1.8-7.7); NEUTROPHILS % (AUTO) 88.5 % (40.0-70.0); PLATELET COUNT (AUTO) 234 K/uL (130-430); RED CELL DISTRIBUTION WIDTH 15.3 % (9.0-15.0); WHITE BLOOD COUNT (AUTO) 9.7 K/uL (4.8-10.8)
[2022-11-09 07:15] LABS: ALANINE AMINOTRANSFERASE 15 U/L (12-78); ALBUMIN 3.1 g/dL (3.4-4.8); ANION GAP 6 (5-15); ASPARTATE AMINOTRANSFERASE 10 U/L (10-37); CALCIUM 8.1 mg/dL (8.4-11.0); CHLORIDE 103 mmol/L (98-107); GLUCOSE 139 mg/dL (70-99); UREA NITROGEN, BLOOD 36 mg/dL (8-21)
[2022-11-09] MEDS: BUDESONIDE 0.5 MG/2 ML AMPUL.NEB INH SCH (07:28)
[2022-11-09 08:00] VITALS: BP_SYST 153
[2022-11-09] MEDS: FUROSEMIDE 40 MG TABLET PO SCH (08:39)
[2022-11-09] MEDS: HYDROCHLOROTHIAZIDE 12.5 MG CAPSULE (HCTZ) PO SCH (08:39)
[2022-11-09] MEDS: LISINOPRIL 10 MG TABLET (PRINIVIL) PO SCH (08:39)
[2022-11-09] MEDS: amLODIPine BESYLATE 5 MG TABLET PO SCH (08:40)
[2022-11-09] MEDS: IPRATROPIUM/ALBUTEROL SULFATE 3 ML AMPUL.NEB (DUONEB) INH PRN ×2 (10:01→12:55)
[2022-11-09 12:00] VITALS: BP_SYST 104
[2022-11-09 16:00] VITALS: BP_SYST 135
[2022-11-09 20:00] VITALS: BP_SYST 128
[2022-11-09] MEDS: ATORVASTATIN 10 MG TABLET PO SCH (21:45)
[2022-11-10] VITALS: BP_SYST 122
[2022-11-10] MEDS: BUDESONIDE 0.5 MG/2 ML AMPUL.NEB INH SCH ×3 (04:43→19:59)
[2022-11-10] MEDS: IPRATROPIUM/ALBUTEROL SULFATE 3 ML AMPUL.NEB (DUONEB) INH PRN (04:44)
[2022-11-10] MEDS: LORazepam 2 MG/ML VIAL IVP PRN (05:01)
[2022-11-10] MEDS: NORMAL SALINE 5 ML DISP.SYRIN IVF SCH ×2 (05:15→13:59)
[2022-11-10] MEDS: METHYLPREDNISOLONE SOD SUCC 40 MG/ML VIAL IVP SCH ×2 (05:15→13:59)
[2022-11-10 07:19] VITALS: BP_SYST 129
[2022-11-10] MEDS: HYDROCHLOROTHIAZIDE 12.5 MG CAPSULE (HCTZ) PO SCH (08:17)
[2022-11-10] MEDS: LISINOPRIL 10 MG TABLET (PRINIVIL) PO SCH (08:18)
[2022-11-10] MEDS: amLODIPine BESYLATE 5 MG TABLET PO SCH (08:18)
[2022-11-10] MEDS: FUROSEMIDE 40 MG TABLET PO SCH (08:18)
[2022-11-10 11:04] VITALS: BP_SYST 119
[2022-11-10 19:31] VITALS: BP_SYST 94
== END 2022-11-10 19:45 | disposition home or self-care (01) | DRG 190 ==
LOC: SED 14:52 → STU 16:38 → SMU 11-08 09:00
PROVIDERS: ADMIT Internal Medicine; ATTEND Internal Medicine
DX: J44.0 Chronic obstructive pulmonary disease with (acute) lower respiratory infection (principal); J18.9 Pneumonia, unspecified organism; I13.0 Hypertensive heart and chronic kidney disease with heart failure and stage 1 through stage 4 chronic kidney disease, or unspecified chronic kidney disease; J44.1 Chronic obstructive pulmonary disease with (acute) exacerbation; E78.5 Hyperlipidemia, unspecified; I25.10 Atherosclerotic heart disease of native coronary artery without angina pectoris; E83.52 Hypercalcemia; E83.51 Hypocalcemia; F17.200 Nicotine dependence, unspecified, uncomplicated; E88.09 Other disorders of plasma-protein metabolism, not elsewhere classified; R73.9 Hyperglycemia, unspecified; I50.9 Heart failure, unspecified; N18.9 Chronic kidney disease, unspecified; Z20.822 Contact with and (suspected) exposure to COVID-19; Z79.899 Other long term (current) drug therapy
CPT/HCPCS: 36415; 71045; 71250-TC; 76376; 80048; 80053; 83880; 84484; 85025; 93005; 94640; 94760; 96374; 99285; G0378; J1030; J2060; J7613; J7626; Q0144

== ENCOUNTER 2023-03-21 18:46 | Emergency (ER) | payer BC ==
[~2023-03-21] VITALS: Ht 193 cm; Wt 113.4 kg
[2023-03-21 19:04] VITALS: BP_SYST 159; PULSE 75; RESP 16; TEMP 97.5; O2SAT 95
[2023-03-21 19:38] LABS: BASOPHILS % (AUTO) 0.9 % (0.0-2.0); EOSINOPHILS # (AUTO) 0.2 K/uL (0.0-0.4); HEMATOCRIT 39.8 % (36-54); HEMOGLOBIN 12.9 g/dL (14.0-18.0); LYMPHOCYTES # (AUTO) 1.2 K/uL (1.0-5.5); LYMPHOCYTES % (AUTO) 23.5 % (20.5-51.5); MEAN CORPUSCULAR HEMOGLOBIN 27 pg (27-31); MEAN CORPUSCULAR HGB CONC 32 % (32-36); MEAN CORPUSCULAR VOLUME 83 fL (79.0-98.0); MONOCYTES # (AUTO) 0.7 K/uL (0.0-1.0); MONOCYTES % (AUTO) 14.7 % (1.7-9.3); NEUTROPHILS # (AUTO) 2.8 K/uL (1.8-7.7); NEUTROPHILS % (AUTO) 56.9 % (40.0-70.0); PLATELET COUNT (AUTO) 180 K/uL (130-430); RED BLOOD CELL COUNT(AUTO) 4.82 MIL/uL (4.2-6.2); RED CELL DISTRIBUTION WIDTH 16.4 % (9.0-15.0)
[2023-03-21 19:45] LABS: ANION GAP 9 (5-15); CALCIUM 8.4 mg/dL (8.4-11.0); CARBON DIOXIDE 25 mmol/L (23-29); CHLORIDE 106 mmol/L (98-107); CREATININE 0.95 mg/dL (0.55-1.30); GLUCOSE 101 mg/dL (74-106); POTASSIUM 4.1 mmol/L (3.5-5.1); SODIUM SERUM 140 mmol/L (136-145); UREA NITROGEN, BLOOD 14 mg/dL (8-21)
[2023-03-21 19:47] LABS: INR 0.9 (0.80-1.20); PROTHROMBIN TIME 9.6 SECS (9.5-12.5)
[2023-03-21 20:00] LABS: ALANINE AMINOTRANSFERASE 16 U/L (12-78); ALBUMIN 3.8 g/dL (3.4-4.8); ASPARTATE AMINOTRANSFERASE 26 U/L (10-37); TOTAL BILIRUBIN 0.7 mg/dL (0.0-1.0); TOTAL PROTEIN, SERUM 6.5 g/dL (6.4-8.3)
[2023-03-21] MEDS ORDERED: MORPHINE 4 MG INJ. 4 MG/ML VIAL IM ONE ×2 (20:15→20:45)
[2023-03-21 21:04] VITALS: BP_SYST 155; PULSE 79; RESP 18; O2SAT 97
== END 2023-03-21 21:04 | disposition home or self-care (01) ==
LOC: SED 18:46
DX: S60.222A Contusion of left hand, initial encounter (principal); I11.0 Hypertensive heart disease with heart failure; I50.9 Heart failure, unspecified; E78.5 Hyperlipidemia, unspecified; Z79.899 Other long term (current) drug therapy; W22.8XXA Striking against or struck by other objects, initial encounter; Y93.89 Activity, other specified; Y92.89 Other specified places as the place of occurrence of the external cause; Y99.8 Other external cause status
CPT/HCPCS: 99285; 93971; 80053; 85025; 85610; 85730; 36415; 73130; 96372; 83605; 82397; J2270

== ENCOUNTER 2023-03-22 10:36 | Emergency (ER) | payer BC ==
[~2023-03-22] VITALS: Ht 190.5 cm; Wt 95.3 kg
[2023-03-22 10:42] VITALS: BP_SYST 147; PULSE 77; RESP 22; TEMP 97.4; O2SAT 94
[2023-03-22 11:15] LABS: EOSINOPHILS # (AUTO) 0.2 K/uL (0.0-0.4); EOSINOPHILS % (AUTO) 4.7 % (0.0-4.0); HEMATOCRIT 37.9 % (36-54); HEMOGLOBIN 12.3 g/dL (14.0-18.0); LYMPHOCYTES # (AUTO) 0.9 K/uL (1.0-5.5); LYMPHOCYTES % (AUTO) 19.6 % (20.5-51.5); MEAN CORPUSCULAR HEMOGLOBIN 27 pg (27-31); MEAN CORPUSCULAR HGB CONC 32 % (32-36); MEAN CORPUSCULAR VOLUME 83 fL (79.0-98.0); MONOCYTES # (AUTO) 0.6 K/uL (0.0-1.0); MONOCYTES % (AUTO) 13.8 % (1.7-9.3); NEUTROPHILS # (AUTO) 2.7 K/uL (1.8-7.7); NEUTROPHILS % (AUTO) 60.9 % (40.0-70.0); PLATELET COUNT (AUTO) 163 K/uL (130-430); RED BLOOD CELL COUNT(AUTO) 4.56 MIL/uL (4.2-6.2); RED CELL DISTRIBUTION WIDTH 15.3 % (9.0-15.0); WHITE BLOOD COUNT (AUTO) 4.5 K/uL (4.8-10.8)
[2023-03-22 11:26] LABS: PROTHROMBIN TIME 10.1 SECS (9.5-12.5)
[2023-03-22 11:29] LABS: ANION GAP 6 (5-15); CALCIUM 8.1 mg/dL (8.4-11.0); CARBON DIOXIDE 29 mmol/L (23-29); CHLORIDE 105 mmol/L (98-107); CREATININE 0.85 mg/dL (0.55-1.30); GLUCOSE 98 mg/dL (74-106); POTASSIUM 3.8 mmol/L (3.5-5.1); SODIUM SERUM 140 mmol/L (136-145); UREA NITROGEN, BLOOD 12 mg/dL (8-21)
[2023-03-22 11:34] LABS: ALANINE AMINOTRANSFERASE 12 U/L (12-78); ALBUMIN 3.4 g/dL (3.4-4.8); ASPARTATE AMINOTRANSFERASE 24 U/L (10-37); TOTAL BILIRUBIN 0.8 mg/dL (0.0-1.0); TOTAL PROTEIN, SERUM 5.9 g/dL (6.4-8.3)
[2023-03-22 12:21] VITALS: BP_SYST 142; PULSE 77; RESP 18; TEMP 97.6; O2SAT 95
== END 2023-03-22 12:18 | disposition home or self-care (01) ==
LOC: SED 10:36
DX: S60.222A Contusion of left hand, initial encounter (principal); E78.5 Hyperlipidemia, unspecified; I11.0 Hypertensive heart disease with heart failure; I50.9 Heart failure, unspecified; Z79.899 Other long term (current) drug therapy; W22.8XXA Striking against or struck by other objects, initial encounter; Y93.89 Activity, other specified; Y92.89 Other specified places as the place of occurrence of the external cause; Y99.8 Other external cause status
CPT/HCPCS: 36415; 80053; 85025; 85610-TC; 93005; 99284

== ENCOUNTER 2024-02-25 12:29 | Emergency (ER) | payer BC ==
[~2024-02-25] VITALS: Ht 193 cm; Wt 103.9 kg
[~2024-02-25 12:29] MED LIST changes: +ATOR-449 PO; +AZIT500T PO; -AZIT500T3 PO; -LIP10 PO
[2024-02-25 12:39] VITALS: BP_SYST 142; PULSE 112; RESP 20; TEMP 97.8; O2SAT 100
[2024-02-25] MEDS: predniSONE 20 MG TABLET PO ONE (13:06)
[2024-02-25] MEDS: IPRATROPIUM/ALBUTEROL SULFATE 3 ML AMPUL.NEB (DUONEB) INH ONE (13:20)
[2024-02-25 13:24] LABS: BASOPHILS # (AUTO) 0.1 K/uL (0.0-0.2); BASOPHILS % (AUTO) 0.3 % (0.0-2.0); HEMATOCRIT 43.2 % (36-54); HEMOGLOBIN 14.2 g/dL (14.0-18.0); LYMPHOCYTES # (AUTO) 0.5 K/uL (1.0-5.5); LYMPHOCYTES % (AUTO) 3.1 % (20.5-51.5); MEAN CORPUSCULAR HEMOGLOBIN 28 pg (27-31); MEAN CORPUSCULAR HGB CONC 33 % (32-36); MEAN CORPUSCULAR VOLUME 86 fL (79.0-98.0); MONOCYTES # (AUTO) 1.3 K/uL (0.0-1.0); MONOCYTES % (AUTO) 8.4 % (1.7-9.3); NEUTROPHILS # (AUTO) 13.6 K/uL (1.8-7.7); NEUTROPHILS % (AUTO) 88.2 % (40.0-70.0); PLATELET COUNT (AUTO) 179 K/uL (130-430); RED BLOOD CELL COUNT(AUTO) 5.03 MIL/uL (4.2-6.2); RED CELL DISTRIBUTION WIDTH 14.3 % (9.0-15.0); WHITE BLOOD COUNT (AUTO) 15.4 K/uL (4.8-10.8)
[2024-02-25 13:55] LABS: ANION GAP 11 (5-15); CALCIUM 8.9 mg/dL (8.4-11.0); CARBON DIOXIDE 27 mmol/L (23-29); CHLORIDE 97 mmol/L (98-107); CREATININE 1.22 mg/dL (0.55-1.30); GLUCOSE 119 mg/dL (74-106); POTASSIUM 3.4 mmol/L (3.5-5.1); SODIUM SERUM 135 mmol/L (136-145); UREA NITROGEN, BLOOD 15 mg/dL (8-21)
[2024-02-25 14:15] LABS: COVID19 ANTIGEN SOFIA FIA NEGATIVE (NEGATIVE)
[2024-02-25 14:16] LABS: INFLUENZA TYPE A Negative (NEGATIVE); INFLUENZA TYPE B NEGATIVE (NEGATIVE)
[2024-02-25] MEDS ORDERED: FAMO20TA8 PO (15:07)
[2024-02-25] MEDS ORDERED: BUPR-551 PO (15:07)
[2024-02-25] MEDS ORDERED: ERGO1250 PO (15:07)
[2024-02-25] MEDS ORDERED: FINA5TAB11 PO (15:07)
[2024-02-25] MEDS ORDERED: PRED20TA PO (15:15)
[2024-02-25] MEDS ORDERED: ZIT250 PO (15:15)
[2024-02-25] MEDS ORDERED: ALBU2.5V7 INH (15:15)
[2024-02-25 15:43] VITALS: BP_SYST 125; PULSE 106; RESP 20; TEMP 97.9; O2SAT 93
== END 2024-02-25 15:41 | disposition home or self-care (01) ==
LOC: SED 12:29
DX: J44.1 Chronic obstructive pulmonary disease with (acute) exacerbation (principal); Z20.822 Contact with and (suspected) exposure to COVID-19; R00.0 Tachycardia, unspecified; I11.0 Hypertensive heart disease with heart failure; I50.9 Heart failure, unspecified; Z79.899 Other long term (current) drug therapy; Z79.2 Long term (current) use of antibiotics
CPT/HCPCS: 99285; 71045; 87426; 80048; 83880; 85025; 84484; 36415; 93005; 94640; 87804 ×2; J7512

== ENCOUNTER 2024-02-28 09:50 | Inpatient (IN) | payer BC ==
[2024-02-28] VITALS (7 sets, daily range): BP systolic 119–161; PULSE 65–95; RESP 16–22; TEMP 97.1–98.3; O2SAT 89–96
[~2024-02-28] VITALS: Ht 193 cm; Wt 95.3 kg
[~2024-02-28 09:50] MED LIST changes: -AZIT500T PO; +BUPR-551 PO; +ERGO1250 PO; +FAMO20TA8 PO; +FINA5TAB11 PO; -HYDR-3917 PO; -HYDR12.585 PO; -IBUP-1971 PO; -LISI10TA29 PO; -MED4 PO; -PRED50TA PO; -SULF1TAB47 PO; +ZIT250 PO
[2024-02-28] MEDS: IPRATROPIUM/ALBUTEROL SULFATE 3 ML AMPUL.NEB (DUONEB) INH ONE ×2 (10:08→14:42)
[2024-02-28] MEDS: methylPREDNISolone SOD SUCC/PF 62.5 MG/ML VIAL IVP ONE ×2 (10:15→16:04)
[2024-02-28 10:17] LABS: BASOPHILS % (AUTO) 0.1 % (0.0-2.0); HEMATOCRIT 43.1 % (36-54); HEMOGLOBIN 14.5 g/dL (14.0-18.0); LYMPHOCYTES # (AUTO) 0.2 K/uL (1.0-5.5); LYMPHOCYTES % (AUTO) 1.5 % (20.5-51.5); MEAN CORPUSCULAR HEMOGLOBIN 29 pg (27-31); MEAN CORPUSCULAR HGB CONC 34 % (32-36); MEAN CORPUSCULAR VOLUME 85 fL (79.0-98.0); MONOCYTES # (AUTO) 1.1 K/uL (0.0-1.0); MONOCYTES % (AUTO) 7.2 % (1.7-9.3); NEUTROPHILS # (AUTO) 14.3 K/uL (1.8-7.7); NEUTROPHILS % (AUTO) 91.2 % (40.0-70.0); PLATELET COUNT (AUTO) 242 K/uL (130-430); RED BLOOD CELL COUNT(AUTO) 5.04 MIL/uL (4.2-6.2); RED CELL DISTRIBUTION WIDTH 14.4 % (9.0-15.0); WHITE BLOOD COUNT (AUTO) 15.7 K/uL (4.8-10.8)
[2024-02-28 10:35] LABS: ANION GAP 11 (5-15); CALCIUM 9.3 mg/dL (8.4-11.0); CARBON DIOXIDE 25 mmol/L (23-29); CHLORIDE 98 mmol/L (98-107); CREATININE 1.27 mg/dL (0.55-1.30); GLUCOSE 144 mg/dL (74-106); POTASSIUM 3.2 mmol/L (3.5-5.1); SODIUM SERUM 134 mmol/L (136-145); UREA NITROGEN, BLOOD 23 mg/dL (8-21)
[2024-02-28] MEDS: IPRATROPIUM/ALBUTEROL SULFATE 3 ML AMPUL.NEB (DUONEB) INH SCH (15:34)
[2024-02-28] MEDS: FUROSEMIDE 20 MG/2 ML VIAL IVP ONE (16:04)
[2024-02-28] MEDS: AZITHROMYCIN 250 MG in NS 250 ML IV SCH (16:05)
[2024-02-28] MEDS: cefTRIAXone 1 GM IVPB PREMIX 50 ML IV SCH (16:05)
[2024-02-28] MEDS: methylPREDNISolone SOD SUCC/PF 62.5 MG/ML VIAL IVP SCH (21:00)
[2024-02-29] VITALS (10 sets, daily range): BP systolic 97–129; PULSE 85–95; RESP 16–20; TEMP 97–98; O2SAT 95–98
[2024-02-29 04:43] LABS: EOSINOPHILS % (AUTO) 0.1 % (0.0-4.0); HEMATOCRIT 41.6 % (36-54); HEMOGLOBIN 13.9 g/dL (14.0-18.0); LYMPHOCYTES # (AUTO) 0.3 K/uL (1.0-5.5); LYMPHOCYTES % (AUTO) 2.2 % (20.5-51.5); MEAN CORPUSCULAR HEMOGLOBIN 29 pg (27-31); MEAN CORPUSCULAR HGB CONC 33 % (32-36); MEAN CORPUSCULAR VOLUME 86 fL (79.0-98.0); MONOCYTES # (AUTO) 0.4 K/uL (0.0-1.0); MONOCYTES % (AUTO) 3.2 % (1.7-9.3); NEUTROPHILS # (AUTO) 11.9 K/uL (1.8-7.7); NEUTROPHILS % (AUTO) 94.5 % (40.0-70.0); PLATELET COUNT (AUTO) 209 K/uL (130-430); RED BLOOD CELL COUNT(AUTO) 4.85 MIL/uL (4.2-6.2); RED CELL DISTRIBUTION WIDTH 14.2 % (9.0-15.0); WHITE BLOOD COUNT (AUTO) 12.5 K/uL (4.8-10.8)
[2024-02-29 05:12] LABS: ANION GAP 9 (5-15); CARBON DIOXIDE 31 mmol/L (23-29); CHLORIDE 101 mmol/L (98-107); CREATININE 1.14 mg/dL (0.55-1.30); GLUCOSE 149 mg/dL (74-106); POTASSIUM 3.1 mmol/L (3.5-5.1); SODIUM SERUM 141 mmol/L (136-145); UREA NITROGEN, BLOOD 23 mg/dL (8-21)
[2024-02-29] MEDS: FUROSEMIDE 20 MG/2 ML VIAL IVP SCH (09:25)
[2024-02-29] MEDS: POTASSIUM CHLORIDE 20 MEQ TABLET.ER PO ONE (11:12)
[2024-03-01] VITALS (11 sets, daily range): BP systolic 120–156; PULSE 94–112; RESP 16–18; TEMP 97.8–98.6; O2SAT 92–100
[2024-03-01] MEDS ORDERED: ACETAMINOPHEN 325 MG TABLET PO PRN
[2024-03-01] MEDS: DOCUSATE SODIUM 100 MG CAPSULE PO ONE
[2024-03-01 05:35] LABS: ANION GAP 8 (5-15); CALCIUM 9.3 mg/dL (8.4-11.0); CARBON DIOXIDE 32 mmol/L (23-29); CHLORIDE 104 mmol/L (98-107); CREATININE 1.05 mg/dL (0.55-1.30); GLUCOSE 137 mg/dL (74-106); POTASSIUM 3.7 mmol/L (3.5-5.1); SODIUM SERUM 144 mmol/L (136-145); UREA NITROGEN, BLOOD 25 mg/dL (8-21)
[2024-03-01 07:24] LABS: BASOPHILS % (AUTO) 0.1 % (0.0-2.0); HEMATOCRIT 43.9 % (36-54); HEMOGLOBIN 14.3 g/dL (14.0-18.0); LYMPHOCYTES # (AUTO) 0.3 K/uL (1.0-5.5); LYMPHOCYTES % (AUTO) 2.2 % (20.5-51.5); MEAN CORPUSCULAR HEMOGLOBIN 28 pg (27-31); MEAN CORPUSCULAR HGB CONC 33 % (32-36); MEAN CORPUSCULAR VOLUME 87 fL (79.0-98.0); MONOCYTES # (AUTO) 0.8 K/uL (0.0-1.0); MONOCYTES % (AUTO) 5.2 % (1.7-9.3); NEUTROPHILS # (AUTO) 13.7 K/uL (1.8-7.7); NEUTROPHILS % (AUTO) 92.5 % (40.0-70.0); PLATELET COUNT (AUTO) 243 K/uL (130-430); RED BLOOD CELL COUNT(AUTO) 5.06 MIL/uL (4.2-6.2); RED CELL DISTRIBUTION WIDTH 14.4 % (9.0-15.0); WHITE BLOOD COUNT (AUTO) 14.8 K/uL (4.8-10.8)
[2024-03-01 12:24] LABS: BASOPHILS % (AUTO) 0.2 % (0.0-2.0); EOSINOPHILS % (AUTO) 0.1 % (0.0-4.0); HEMATOCRIT 45.6 % (36-54); HEMOGLOBIN 14.8 g/dL (14.0-18.0); LYMPHOCYTES # (AUTO) 0.5 K/uL (1.0-5.5); LYMPHOCYTES % (AUTO) 2.7 % (20.5-51.5); MEAN CORPUSCULAR HEMOGLOBIN 28 pg (27-31); MEAN CORPUSCULAR HGB CONC 33 % (32-36); MEAN CORPUSCULAR VOLUME 87 fL (79.0-98.0); MONOCYTES # (AUTO) 1.1 K/uL (0.0-1.0); MONOCYTES % (AUTO) 6.3 % (1.7-9.3); NEUTROPHILS # (AUTO) 15.9 K/uL (1.8-7.7); NEUTROPHILS % (AUTO) 90.7 % (40.0-70.0); PLATELET COUNT (AUTO) 245 K/uL (130-430); RED BLOOD CELL COUNT(AUTO) 5.26 MIL/uL (4.2-6.2); RED CELL DISTRIBUTION WIDTH 14.4 % (9.0-15.0); WHITE BLOOD COUNT (AUTO) 17.6 K/uL (4.8-10.8)
[2024-03-01] MEDS: methylPREDNISolone SOD SUCC/PF 62.5 MG/ML VIAL IVP SCH (17:23)
[2024-03-01] MEDS ORDERED: LOSARTAN POTASSIUM 50 MG TABLET (COZAAR) PO SCH (17:30)
[2024-03-01] MEDS: LOSARTAN POTASSIUM 50 MG TABLET (COZAAR) PO ONE (17:47)
[2024-03-01] MEDS: TEMAZEPAM 7.5 MG CAPSULE PO PRN (20:32)
[2024-03-01] MEDS: LOSARTAN POTASSIUM 50 MG TABLET (COZAAR) PO SCH (20:33)
[2024-03-02] VITALS (11 sets, daily range): BP systolic 104–132; PULSE 72–104; RESP 18–20; TEMP 97.5–98.7; O2SAT 93–97
[2024-03-02] MEDS: ALPRAZolam 0.25 MG TABLET PO PRN (14:39)
[2024-03-02 19:10] LABS: ABG O2 SAT% ESTIMATE 97.3 % (94.0-100.0); BLOOD GAS BASE EXCESS 4.2 mmol/L (-3.0-3.0); BLOOD GAS HCO3 27.1 mmol/L (21.0-27.0); BLOOD GAS PCO2 35.5 mmHg (32.0-45.0); BLOOD GAS PH 7.501 (7.350-7.450)
[2024-03-02 19:11] LABS: ALLEN'S TEST POSITIVE (P); FRACTIONATED INSPIRED OXYGEN 0.32 % (0.21-100.00)
[2024-03-02] MEDS: PIPERACILLIN/TAZO 4.5 GM in D5W 100 ML IV SCH (21:43)
[2024-03-03] VITALS (14 sets, daily range): BP systolic 88–148; PULSE 93–104; RESP 18–20; TEMP 97.1–98; O2SAT 92–100
[2024-03-03 05:25] LABS: HEMATOCRIT 47.1 % (36-54); HEMOGLOBIN 15.4 g/dL (14.0-18.0); MEAN CORPUSCULAR HEMOGLOBIN 28 pg (27-31); MEAN CORPUSCULAR HGB CONC 33 % (32-36); MEAN CORPUSCULAR VOLUME 87 fL (79.0-98.0); PLATELET COUNT (AUTO) 260 K/uL (130-430); RED BLOOD CELL COUNT(AUTO) 5.42 MIL/uL (4.2-6.2); RED CELL DISTRIBUTION WIDTH 14.5 % (9.0-15.0); WHITE BLOOD COUNT (AUTO) 15.8 K/uL (4.8-10.8)
[2024-03-03 05:53] LABS: ANION GAP 7 (5-15); CALCIUM 8.7 mg/dL (8.4-11.0); CARBON DIOXIDE 31 mmol/L (23-29); CHLORIDE 102 mmol/L (98-107); CREATININE 1.11 mg/dL (0.55-1.30); GLUCOSE 155 mg/dL (74-106); POTASSIUM 3.9 mmol/L (3.5-5.1); SODIUM SERUM 140 mmol/L (136-145); UREA NITROGEN, BLOOD 24 mg/dL (8-21)
[2024-03-03] MEDS: BUMEX 1 MG/4 ML VIAL IVP ONE (11:31)
[2024-03-03 11:59] LABS: BAND % (MANUAL) 10 % (0-6); LYMPHOCYTES % (MANUAL) 1 % (20-46)
[2024-03-03 12:00] LABS: ATYPICAL LYMPHOCYTES % 3 % (0-0); BASOPHILS % (MANUAL) 0 % (0-2); EOSINOPHILS % (MANUAL) 0 % (0-7); MONOCYTES % (MANUAL) 4 % (0-11); PLATELET ESTIMATE ADEQUATE (ADEQUATE)
[2024-03-03] MEDS: ACETYLCYSTEINE 20% 4 ML VIAL (RT) INH ONE (15:00)
[2024-03-03] MEDS: ACETYLCYSTEINE 20% 4 ML VIAL (RT) INH SCH (15:00)
[2024-03-03 16:52] LABS: INFLUENZA TYPE A Negative (NEGATIVE); INFLUENZA TYPE B NEGATIVE (NEGATIVE)
[2024-03-04] VITALS (11 sets, daily range): BP systolic 107–118; PULSE 79–94; RESP 14–20; TEMP 97.3–98; O2SAT 95–98
[2024-03-04] MEDS: IPRATROPIUM/ALBUTEROL SULFATE 3 ML AMPUL.NEB (DUONEB) INH PRN (09:24)
[2024-03-05] VITALS (10 sets, daily range): BP systolic 105–132; PULSE 71–94; RESP 14–18; TEMP 97.1–98.4; O2SAT 92–100
[2024-03-05] MEDS ORDERED: AMOX-423 PO (12:20)
[2024-03-05] MEDS ORDERED: ZIT250 PO (12:21)
[2024-03-05] MEDS ORDERED: FLUT1BLS19 BC (12:34)
[2024-03-06] VITALS (7 sets, daily range): BP systolic 111–164; PULSE 74–76; RESP 16–19; TEMP 98–98.4; O2SAT 93–95
== END 2024-03-06 16:51 | disposition home health service (06) | DRG 193 ==
LOC: SED 09:50 → STU 11:59
PROVIDERS: ADMIT Specialist; ATTEND Specialist
DX: J15.9 Unspecified bacterial pneumonia (principal); J96.20 Acute and chronic respiratory failure, unspecified whether with hypoxia or hypercapnia; R65.11 Systemic inflammatory response syndrome (SIRS) of non-infectious origin with acute organ dysfunction; J44.0 Chronic obstructive pulmonary disease with (acute) lower respiratory infection; Z20.822 Contact with and (suspected) exposure to COVID-19; I50.9 Heart failure, unspecified; I11.0 Hypertensive heart disease with heart failure; I25.10 Atherosclerotic heart disease of native coronary artery without angina pectoris; E78.5 Hyperlipidemia, unspecified; Z79.899 Other long term (current) drug therapy; Z87.891 Personal history of nicotine dependence; Z88.8 Allergy status to other drugs, medicaments and biological substances
CPT/HCPCS: 36415; 36600; 71045; 71250-TC; 80048; 82785; 82803; 83880; 84484; 85007; 85025; 85027; 86606; 86738; 87305; 87449; 93005; 93306; 94070; 94640; 94664; 94760; 96374; 99285; G0378; J0456; J0696; J1940; J2543; J2930; J3490; J7050; J7060; J7608